=== PATIENT | female | born 1955 | race Caucasian/White ===

== ENCOUNTER 2023-01-05 13:14 | Emergency (ER) | payer OTHER, MEDICAID ==
[2023-01-05] MEDS ORDERED: Ketorolac Tromethamine 30 MG/ML VIAL ONE (13:37)
== END 2023-01-05 14:20 | disposition home or self-care (01) ==
LOC: ERS 13:14
DX: M25.532 Pain in left wrist (principal); I10 Essential (primary) hypertension; E11.9 Type 2 diabetes mellitus without complications; Z79.899 Other long term (current) drug therapy; Z79.84 Long term (current) use of oral hypoglycemic drugs
CPT/HCPCS: 29125; 96372; J1885